=== PATIENT | male | born 1985 | race Two or more races ===

== ENCOUNTER 2019-03-22 10:57 | Emergency (ER) | payer OTHER ==
[~2019-03-22] VITALS: Ht 167.6 cm; Wt 67.6 kg
[2019-03-22 11:39] VITALS: Ht 167.6 cm; Wt 67.6 kg
[2019-03-22 13:03] LABS: PLATELET COUNT 307 x10^3mcL (130-400); RED CELL DISTRIBUTION WIDTH 13.3 % (11.5-14.5)
[2019-03-22 13:28] LABS: CALCIUM 9.3 mg/dL (8.5-10.1); CARBON DIOXIDE 25.8 mmol/L (21-32); CHLORIDE SERUM 100 mmol/L (98-107); CREATININE SERUM 1.2 mg/dL (0.7-1.3); GFR1 > 60 mL/min; GLUCOSE SERUM 112 mg/dL (74-106); POTASSIUM SERUM 4.4 mmol/L (3.5-5.1); SODIUM SERUM 137 mmol/L (136-145)
[2019-03-22 13:33] LABS: ALBUMIN 3.9 g/dL (3.4-5.0); ALKALINE PHOSPHATASE 57 U/L (46-116); ALT/SGPT 57 U/L (16-63); AST/SGOT 20 U/L (15-37); BILIRUBIN TOTAL 0.81 mg/dL (0.20-1.00); C REACTIVE PROTEIN 3.6 mg/dL (<=0.9)
[2019-03-22 13:34] LABS: TOTAL PROTEIN, SERUM 8.7 g/dL (6.4-8.2)
[2019-03-22 14:01] LABS: ERYTHROCYTE SED RATE 58 mm/hr (0-15)
[2019-03-22 15:00] VITALS: BP 98/64
[2019-03-22 15:21] LABS: BAND NEUTROPHIL 0 % (0-10); BASOPHIL 0 % (0-2); MONOCYTE 4 % (0-7); SEGMENTED NEUTROPHILS 75 % (37-75)
[2019-03-22 15:22] LABS: rbc morphology (normal/abnorm) NORMAL (NORMAL)
== END 2019-03-22 15:00 | disposition home or self-care (01) ==
LOC: ED 10:57 → EDBD 10:57 → ED 15:00
PROVIDERS: Emergency Medicine
DX: L03.115 Cellulitis of right lower limb (principal)
CPT/HCPCS: J1885; J3490

== ENCOUNTER 2019-03-23 08:22 | Emergency (ER) | payer OTHER ==
[~2019-03-23] VITALS: Ht 167.6 cm; Wt 66.7 kg
[2019-03-23 08:28] VITALS: Ht 167.6 cm; Wt 66.7 kg
[2019-03-23 08:58] VITALS: BP 129/65
== END 2019-03-23 08:58 | disposition home or self-care (01) ==
LOC: ED 08:22
DX: L03.115 Cellulitis of right lower limb (principal); Z48.01 Encounter for change or removal of surgical wound dressing
CPT/HCPCS: J0696

== ENCOUNTER 2019-04-27 09:00 | Emergency (ER) | payer OTHER ==
[~2019-04-27] VITALS: Ht 172.7 cm; Wt 68.0 kg
[2019-04-27 09:12] VITALS: BP 155/100; Ht 172.7 cm; Wt 68.0 kg
== END 2019-04-27 09:40 | disposition home or self-care (01) ==
LOC: ED 09:00
DX: J01.90 Acute sinusitis, unspecified (principal); R42 Dizziness and giddiness

== ENCOUNTER 2020-03-18 06:04 | Emergency (ER) | payer OTHER ==
[~2020-03-18] VITALS: Ht 167.6 cm; Wt 68.0 kg
[2020-03-18 06:14] VITALS: Ht 167.6 cm; Wt 68.0 kg
[2020-03-18 08:42] LABS: CALCIUM 9.4 mg/dL (8.5-10.1); CARBON DIOXIDE 21.7 mmol/L (21-32); CREATININE SERUM 1.6 mg/dL (0.7-1.3); POTASSIUM SERUM 4.4 mmol/L (3.5-5.1)
[2020-03-18 08:47] LABS: ALBUMIN 3.4 g/dL (3.4-5.0); BILIRUBIN TOTAL 0.69 mg/dL (0.20-1.00); TOTAL PROTEIN, SERUM 7.8 g/dL (6.4-8.2)
[2020-03-18 08:57] LABS: BASOPHIL % 0.3 % (0-2); PLATELET COUNT 265 x10^3mcL (130-400); RED CELL DISTRIBUTION WIDTH 13.5 % (11.5-14.5)
[2020-03-18 09:18] LABS: microscopic required? YES; urine erythrocyte 3+ (NEGATIVE)
[2020-03-18 11:23] VITALS: BP 113/78
== END 2020-03-18 11:23 | disposition home or self-care (01) ==
LOC: ED 06:04
PROVIDERS: Emergency Medicine
DX: Q61.3 Polycystic kidney, unspecified (principal); N28.9 Disorder of kidney and ureter, unspecified
CPT/HCPCS: J1885